=== PATIENT | male | born 1950 | race Caucasian/White ===

== ENCOUNTER 2021-03-01 09:38 | Observation (INO) ==
[2021-03-01 11:25] LABS: Basophils % 0.2 % (0.0-0.8); Hematocrit 39.5 VOL% (42.0-52.0); Hemoglobin 13.2 GM/DL (14.0-18.0); Immature Granulocytes % 1.2 %; Immature Granulocytes Absolute 0.17 #; Lymphocytes # 0.8 10*3/uL (1.4-4.0); Lymphocytes % 5.6 % (21.2-54.2); Mean Corpuscular HGB Conc 33.4 GM/DL (32-36); Mean Corpuscular Volume 99.2 FL (87-102); Mean Platelet Volume 10.1 FL (9.6-12.0); Monocytes % 16.2 % (1.7-12.7); Neutrophils % 76.8 % (38.7-73.9); Platelet Count 190 T/CUMM (130-400); Red Blood Count 3.98 MC/CUMM (3.8-5.5); Red Cell Distribution Width 13.8 % (9.3-17.3); White Blood Count 13.7 T/CUMM (4-12)
[2021-03-01 11:48] LABS: Band Neutrophils 4 % (0-10); Eosinophils 1 % (0-10); Lymphocytes 4 % (20-55); Myelocytes 1 %; Segmented Neutrophils 75 % (50-85); Total Cells Counted 100
[2021-03-01 11:49] LABS: Atypical Lymphocytes Few; Macrocytosis Slight
[2021-03-01 11:50] LABS: Giant Platelets Few
[2021-03-01 11:52] LABS: Albumin 3.3 G/DL (3.4-5.0); Bilirubin,Total 1.5 MG/DL (0.2-1.0); Calcium 9.3 MG/DL (8.5-10.1); Osmolality,Calculated 276.8 MOS/KG (273-304); Potassium 4.7 MMOL/L (3.5-5.1); Total Protein 7.7 G/DL (6.4-8.2); Uric Acid 6.5 MG/DL (3.5-7.2)
[2021-03-01 15:06] LABS: Glucose,Synovial Fluid 70 MG/DL
[2021-03-01 15:48] LABS: Lymphocytes,Synovial Fluid 1 %; Neutrophils,Synovial Fluid 93 %
[2021-03-01] MEDS ORDERED: methylPREDNISolone SOD SUC 125 MG/2 ML VIAL IV STA (17:06)
[2021-03-01] MEDS ORDERED: VANCOMYCIN INJ 1,000 MG in SODIUM CHLORIDE 0.9% 250 ML IV STA (17:20)
[2021-03-01 17:36] LABS: Cholesterol Crystals None Seen /LPF
[2021-03-01] MEDS ORDERED: hydrALAZINE 20 MG/1 ML VIAL IV PRN (17:42)
[2021-03-01] MEDS ORDERED: DEXTROSE 50% 25 GM/50 ML VIAL IV PRN (17:42)
[2021-03-01] MEDS ORDERED: ONDANSETRON 4 MG/2 ML VIAL IV PRN (17:42)
[2021-03-01] MEDS ORDERED: GLUCAGON 1 MG VIAL IM PRN (17:42)
[2021-03-01] MEDS ORDERED: KETOROLAC 15 MG/1 ML VIAL IV PRN (17:51)
[2021-03-01] MEDS ORDERED: VANCOMYCIN INJ 1,000 MG in SODIUM CHLORIDE 0.9% 250 ML IV ONE (21:00)
[2021-03-01] MEDS: SODIUM CHLORIDE 0.9% 1,000 ML IV SCH (22:10)
[2021-03-01] MEDS: cefTRIAXone 1,000 MG in SYRINGE 1 EACH IV SCH (22:11)
[2021-03-01] MEDS: ENOXAPARIN 40 MG/0.4 ML SYRINGE SUBCUT SCH (22:11)
[2021-03-01] MEDS: COLCHICINE 0.6 MG CAPSULE PO SCH (22:12)
[2021-03-02 06:09] LABS: Basophils % 0.3 % (0.0-0.8); Eosinophils % 0.1 % (0.00-10.9); Hematocrit 37.5 VOL% (42.0-52.0); Hemoglobin 12.5 GM/DL (14.0-18.0); Immature Granulocytes % 1.2 %; Immature Granulocytes Absolute 0.12 #; Lymphocytes # 1.2 10*3/uL (1.4-4.0); Lymphocytes % 12.4 % (21.2-54.2); Mean Corpuscular HGB Conc 33.3 GM/DL (32-36); Mean Corpuscular Volume 98.7 FL (87-102); Mean Platelet Volume 10.6 FL (9.6-12.0); Monocytes % 16.4 % (1.7-12.7); Neutrophils % 69.6 % (38.7-73.9); Platelet Count 181 T/CUMM (130-400); White Blood Count 9.9 T/CUMM (4-12)
[2021-03-02 06:48] LABS: Osmolality,Calculated 276.7 MOS/KG (273-304); Potassium 4.3 MMOL/L (3.5-5.1)
[2021-03-02 06:52] LABS: Band Neutrophils 14 % (0-10); Eosinophils 1 % (0-10); Lymphocytes 16 % (20-55); Platelet Estimate Normal; Segmented Neutrophils 54 % (50-85); Total Cells Counted 100
[2021-03-02 06:53] LABS: Anisocytosis 1+; Macrocytosis Slight
[2021-03-02] MEDS: COLCHICINE 0.6 MG CAPSULE PO SCH ×2 (08:44→21:29)
[2021-03-02] MEDS: PANTOPRAZOLE 40 MG TABLET PO SCH (08:44)
[2021-03-02] MEDS: VANCOMYCIN INJ 1,500 MG in SODIUM CHLORIDE 0.9% 500 ML IV SCH (12:30)
[2021-03-02] MEDS: INDOMETHACIN 25 MG CAPSULE PO SCH ×2 (13:00→21:29)
[2021-03-02] MEDS: ACETAMINOPHEN 325 MG TABLET PO PRN (21:29)
[2021-03-02] MEDS: cefTRIAXone 1,000 MG in SYRINGE 1 EACH IV SCH (21:30)
[2021-03-02] MEDS: ENOXAPARIN 40 MG/0.4 ML SYRINGE SUBCUT SCH (21:30)
[2021-03-03] MEDS: VANCOMYCIN INJ 1,500 MG in SODIUM CHLORIDE 0.9% 500 ML IV SCH (05:48)
[2021-03-03] MEDS: SODIUM CHLORIDE 0.9% 1,000 ML IV SCH ×2 (05:48→20:55)
[2021-03-03 06:31] LABS: Basophils % 0.6 % (0.0-0.8); Eosinophils # 0.1 10*3/uL (0.0-0.87); Hematocrit 35.4 VOL% (42.0-52.0); Hemoglobin 12.1 GM/DL (14.0-18.0); Immature Granulocytes % 1.1 %; Immature Granulocytes Absolute 0.08 #; Lymphocytes % 13.7 % (21.2-54.2); Mean Corpuscular HGB Conc 34.2 GM/DL (32-36); Mean Corpuscular Volume 98.3 FL (87-102); Mean Platelet Volume 10.6 FL (9.6-12.0); Monocytes % 16.9 % (1.7-12.7); Neutrophils % 66.7 % (38.7-73.9); Platelet Count 175 T/CUMM (130-400); Red Cell Distribution Width 13.8 % (9.3-17.3); White Blood Count 7.2 T/CUMM (4-12)
[2021-03-03 06:56] LABS: Calcium 8.6 MG/DL (8.5-10.1); Osmolality,Calculated 281.4 MOS/KG (273-304); Potassium 5.2 MMOL/L (3.5-5.1)
[2021-03-03 07:24] LABS: Eosinophils 1 % (0-10); Lymphocytes 23 % (20-55); Segmented Neutrophils 69 % (50-85); Total Cells Counted 100
[2021-03-03 07:25] LABS: Platelet Estimate Decreased
[2021-03-03] MEDS: COLCHICINE 0.6 MG CAPSULE PO SCH ×2 (08:57→20:55)
[2021-03-03] MEDS: INDOMETHACIN 25 MG CAPSULE PO SCH ×2 (08:57→20:55)
[2021-03-03] MEDS: PANTOPRAZOLE 40 MG TABLET PO SCH (08:58)
[2021-03-03] MEDS: ACETAMINOPHEN 325 MG TABLET PO PRN ×2 (08:58→20:55)
[2021-03-03] MEDS: predniSONE 20 MG TABLET PO SCH (11:12)
[2021-03-03] MEDS: cefTRIAXone 1,000 MG in SYRINGE 1 EACH IV SCH (20:55)
[2021-03-03] MEDS: ENOXAPARIN 40 MG/0.4 ML SYRINGE SUBCUT SCH (20:55)
[2021-03-04] MEDS: VANCOMYCIN INJ 1,500 MG in SODIUM CHLORIDE 0.9% 500 ML IV SCH (00:29)
[2021-03-04 05:28] LABS: Basophils % 0.3 % (0.0-0.8); Eosinophils % 0.2 % (0.00-10.9); Hematocrit 30.2 VOL% (42.0-52.0); Hemoglobin 10.3 GM/DL (14.0-18.0); Immature Granulocytes % 1.4 %; Immature Granulocytes Absolute 0.09 #; Lymphocytes # 0.8 10*3/uL (1.4-4.0); Lymphocytes % 12.1 % (21.2-54.2); Mean Corpuscular HGB Conc 34.1 GM/DL (32-36); Mean Corpuscular Volume 98.4 FL (87-102); Mean Platelet Volume 10.5 FL (9.6-12.0); Monocytes % 6.4 % (1.7-12.7); Neutrophils % 79.6 % (38.7-73.9); Platelet Count 170 T/CUMM (130-400); Red Blood Count 3.07 MC/CUMM (3.8-5.5); Red Cell Distribution Width 13.6 % (9.3-17.3); White Blood Count 6.2 T/CUMM (4-12)
[2021-03-04 05:51] LABS: Band Neutrophils 1 % (0-10); Hypochromasia Slight; Lymphocytes 8 % (20-55); Microcytosis Slight; Ovalocytes Slight; Platelet Estimate Adequate; Segmented Neutrophils 82 % (50-85); Total Cells Counted 100
[2021-03-04 06:03] LABS: Calcium 8.2 MG/DL (8.5-10.1); Osmolality,Calculated 281.5 MOS/KG (273-304); Potassium 4.5 MMOL/L (3.5-5.1)
[2021-03-04] MEDS: PANTOPRAZOLE 40 MG TABLET PO SCH (09:13)
[2021-03-04] MEDS: predniSONE 20 MG TABLET PO SCH (09:13)
[2021-03-04] MEDS: INDOMETHACIN 25 MG CAPSULE PO SCH (09:13)
[2021-03-04] MEDS: COLCHICINE 0.6 MG CAPSULE PO SCH (09:13)
[2021-03-04] MEDS: SODIUM CHLORIDE 0.9% 1,000 ML IV SCH (11:32)
[2021-03-04 11:33] VITALS: BP 135/81
== END 2021-03-04 16:15 | disposition home or self-care (01) ==
LOC: N.ED 09:38 → N.EDINP 09:38 → SUATTDRO 17:42 → N.3E 20:18
PROVIDERS: ADMIT Emergency Medicine; ATTEND Family Medicine

== ENCOUNTER 2022-07-29 13:59 | Observation (INO) ==
[2022-07-29 15:03] LABS: Basophils # 0.1 10*3/uL (0.0-0.2); Basophils % 0.3 % (0.0-0.8); Eosinophils % 0.1 % (0.00-10.9); Hematocrit 33.3 VOL% (42.0-52.0); Hemoglobin 10.7 GM/DL (14.0-18.0); Immature Granulocytes % 2.3 %; Immature Granulocytes Absolute 0.34 #; Lymphocytes # 0.5 10*3/uL (1.4-4.0); Lymphocytes % 3.3 % (21.2-54.2); Mean Corpuscular HGB Conc 32.1 GM/DL (32-36); Mean Corpuscular Volume 97.4 FL (87-102); Mean Platelet Volume 9.5 FL (9.6-12.0); Monocytes # 1.7 10*3/uL (0.11-0.8); Monocytes % 11.1 % (1.7-12.7); Neutrophils % 82.9 % (38.7-73.9); Platelet Count 428 T/CUMM (130-400); Red Blood Count 3.42 MC/CUMM (3.8-5.5); Red Cell Distribution Width 17.5 % (9.3-17.3)
[2022-07-29] MEDS ORDERED: SODIUM CHLORIDE 0.9% 1,000 ML IV STA (15:15)
[2022-07-29 15:23] LABS: Albumin 1.7 G/DL (3.4-5.0); Bilirubin,Total 0.9 MG/DL (0.20-1.00); Calcium 9.4 MG/DL (8.5-10.1); Osmolality,Calculated 260.1 MOS/KG (273-304); Potassium 4.3 MMOL/L (3.5-5.1); Total Protein 7.1 G/DL (6.4-8.2)
[2022-07-29 15:32] LABS: Anisocytosis 1+; Platelet Estimate Normal
[2022-07-29 16:40] LABS: Bacteria,Urine Many /HPF (Few); Mucus,Urine Many /LPF (Occasional)
[2022-07-29 16:41] LABS: Bilirubin,Urine Negative (Negative); Blood, Urine Small mg/dL (Negative); Glucose,Urine (UA) Negative (Negative); Ketones,Urine Negative (Negative); Nitrite,Urine Negative (Negative); Protein,Urine 30 mg/dL (Negative); Urine Appearance Slightly Cloudy (Clear); Urine Color Yellow (Yellow); Urine Specific Gravity 1.015 (1.001-1.035); Urine Urobilinogen >= 8.0 eU/dL (<2.0); Urine pH 5.5 (4.5-8.0)
[2022-07-29] MEDS ORDERED: DEXTROSE 10% 250 ML BAG IV PRN (16:48)
[2022-07-29] MEDS ORDERED: ACETAMINOPHEN 325 MG TABLET PO PRN (16:48)
[2022-07-29] MEDS ORDERED: GLUCAGON 1 MG VIAL IM PRN (16:48)
[2022-07-29] MEDS ORDERED: CALCIUM CARBONATE CHEW 500 MG TABLET PO PRN (16:48)
[2022-07-29] MEDS ORDERED: ALUMINUM/MAGNES/SIMETH MAX STR 30 ML UDCUP PO PRN (16:48)
[2022-07-29] MEDS ORDERED: ONDANSETRON 4 MG/2 ML VIAL IV PRN (16:48)
[2022-07-29] MEDS ORDERED: DOCUSATE SODIUM 100 MG CAPSULE PO PRN (16:48)
[2022-07-29] MEDS ORDERED: ALBUTEROL 2.5 MG/3 ML NEB RESP TX PRN (16:48)
[2022-07-29] MEDS ORDERED: SIMETHICONE CHEW 125 MG TABLET PO PRN (16:48)
[2022-07-29] MEDS: DILTIAZEM 30 MG TABLET PO SCH (17:32)
[2022-07-29] MEDS: cefTRIAXone 1,000 MG in SODIUM CHLORIDE 0.9% 100 ML IV SCH (18:34)
[2022-07-29 19:43] LABS: Hematocrit 29.3 VOL% (42.0-52.0); Hemoglobin 9.1 GM/DL (14.0-18.0)
[2022-07-29] MEDS: METOPROLOL TARTRATE 25 MG TABLET PO SCH (20:38)
[2022-07-29] MEDS: predniSONE 10 MG TABLET PO SCH (20:38)
[2022-07-29] MEDS: SODIUM CHLORIDE 0.9% 1,000 ML IV SCH (20:38)
[2022-07-29] MEDS: PANTOPRAZOLE 40 MG VIAL IV SCH (21:51)
[2022-07-30 00:57] LABS: Basophils % 0.3 % (0.0-0.8); Hemoglobin 8.4 GM/DL (14.0-18.0); Immature Granulocytes % 1.9 %; Immature Granulocytes Absolute 0.22 #; Lymphocytes # 0.7 10*3/uL (1.4-4.0); Lymphocytes % 5.7 % (21.2-54.2); Mean Corpuscular HGB Conc 31.1 GM/DL (32-36); Mean Corpuscular Volume 99.3 FL (87-102); Mean Platelet Volume 9.1 FL (9.6-12.0); Monocytes # 1.3 10*3/uL (0.11-0.8); Monocytes % 11.3 % (1.7-12.7); Neutrophils % 80.8 % (38.7-73.9); Platelet Count 367 T/CUMM (130-400); Red Blood Count 2.72 MC/CUMM (3.8-5.5); Red Cell Distribution Width 17.4 % (9.3-17.3); White Blood Count 11.8 T/CUMM (4-12)
[2022-07-30] MEDS: DILTIAZEM 30 MG TABLET PO SCH ×3 (01:15→17:58)
[2022-07-30 01:20] LABS: Albumin 1.4 G/DL (3.4-5.0); Bilirubin,Direct 0.25 MG/DL (0.0-0.20); Bilirubin,Indirect 0.4 MG/DL (0.0-1.0); Bilirubin,Total 0.6 MG/DL (0.20-1.00); Total Protein 6.1 G/DL (6.4-8.2)
[2022-07-30 01:24] LABS: Calcium 8.8 MG/DL (8.5-10.1); Osmolality,Calculated 266.5 MOS/KG (273-304); Potassium 4.3 MMOL/L (3.5-5.1); Risk Ratio 3.86; Thyroid Stimulating Hormone 0.95 uIU/ml (0.358-3.74); VLDL Cholesterol 14.6 MG/DL
[2022-07-30 03:17] LABS: Hepatitis B Core IgM Quant 0.15 Index; Hepatitis B Surface Ag Quant < 0.10 Index; Hepatitis B Surface Ag Result Non-Reactive (NonReactive); Hepatitis C Virus Ab Quant 0.02 Index; Hepatitis C Virus Ab Result Non-Reactive (NonReactive)
[2022-07-30] MEDS: SODIUM CHLORIDE 0.9% 1,000 ML IV SCH ×3 (03:27→23:48)
[2022-07-30 05:28] LABS: Hematocrit 28.3 VOL% (42.0-52.0); Hemoglobin 8.8 GM/DL (14.0-18.0)
[2022-07-30] MEDS ORDERED: PANTOPRAZOLE 40 MG TABLET PO SCH (09:00)
[2022-07-30] MEDS: OMEGA 3 ACID ETHYL ESTERS 1 GM CAPSULE PO SCH (09:39)
[2022-07-30] MEDS: METOPROLOL TARTRATE 25 MG TABLET PO SCH ×2 (09:39→21:22)
[2022-07-30] MEDS: CHOLECALCIFEROL 1,000 UNIT TABLET PO SCH (09:39)
[2022-07-30] MEDS: PANTOPRAZOLE 40 MG VIAL IV SCH ×2 (09:39→21:25)
[2022-07-30] MEDS: predniSONE 10 MG TABLET PO SCH ×2 (09:39→21:22)
[2022-07-30 12:19] LABS: Hematocrit 27.5 VOL% (42.0-52.0); Hemoglobin 8.5 GM/DL (14.0-18.0)
[2022-07-30] MEDS: cefTRIAXone 1,000 MG in SODIUM CHLORIDE 0.9% 100 ML IV SCH (17:58)
[2022-07-31] MEDS: DILTIAZEM 30 MG TABLET PO SCH ×2 (01:27→09:41)
[2022-07-31 04:19] LABS: Hematocrit 29.4 VOL% (42.0-52.0); Hemoglobin 9.1 GM/DL (14.0-18.0); Mean Corpuscular Volume 100.7 FL (87-102); Mean Platelet Volume 9.1 FL (9.6-12.0); Platelet Count 351 T/CUMM (130-400); Red Blood Count 2.92 MC/CUMM (3.8-5.5); Red Cell Distribution Width 17.2 % (9.3-17.3); White Blood Count 6.6 T/CUMM (4-12)
[2022-07-31 04:20] LABS: Basophils % 0.3 % (0.0-0.8); Immature Granulocytes % 3.5 %; Immature Granulocytes Absolute 0.23 #; Lymphocytes # 0.7 10*3/uL (1.4-4.0); Lymphocytes % 10.4 % (21.2-54.2); Monocytes # 0.6 10*3/uL (0.11-0.8); Neutrophils % 76.8 % (38.7-73.9)
[2022-07-31 04:43] LABS: Calcium 9.1 MG/DL (8.5-10.1); Osmolality,Calculated 277.7 MOS/KG (273-304)
[2022-07-31] MEDS ORDERED: LACTATED RINGERS 1,000 ML IV SCH (07:30)
[2022-07-31] MEDS ORDERED: ETOMIDATE 20 MG/10 ML VIAL IV ONE (08:00)
[2022-07-31] MEDS ORDERED: propofoL 200 MG/20 ML VIAL IV ONE (08:00)
[2022-07-31] MEDS ORDERED: LIDOCAINE 2% 5 ML VIAL ONE (08:00)
[2022-07-31] MEDS ORDERED: PHENYLEPHRINE 1 MG/10 ML SYRINGE IV ONE (08:05)
[2022-07-31] MEDS: predniSONE 10 MG TABLET PO SCH (09:40)
[2022-07-31] MEDS: CHOLECALCIFEROL 1,000 UNIT TABLET PO SCH (09:40)
[2022-07-31] MEDS: OMEGA 3 ACID ETHYL ESTERS 1 GM CAPSULE PO SCH (09:40)
[2022-07-31] MEDS: METOPROLOL TARTRATE 25 MG TABLET PO SCH (09:40)
[2022-07-31] MEDS: SODIUM CHLORIDE 0.9% 1,000 ML IV SCH (09:42)
[2022-07-31] MEDS: PANTOPRAZOLE 40 MG VIAL IV SCH (09:42)
[2022-07-31 12:48] VITALS: BP 104/72
== END 2022-07-31 15:08 ==
LOC: EDBD → EDUNIT# → N.EDINP 13:59 → N.ED 13:59 → N.EDINP 17:58 → N.TELEN 18:28
PROVIDERS: ADMIT Emergency Medicine; ATTEND Emergency Medicine